=== PATIENT | female | born 1965 | race Caucasian/White ===

== ENCOUNTER 2023-02-09 10:46 | Day surgery (SDC) | payer OTHER ==
[~2023-02-09] VITALS: Ht 177.8 cm; Wt 81.6 kg
[2023-02-09] MEDS ORDERED: diphenhydrAMINE 50 MG/ML VIAL ONE (12:06)
[2023-02-09] MEDS ORDERED: LIDOCAINE 2% 100 MG/5 ML UJET TP ONE (12:06)
[2023-02-09] MEDS ORDERED: fentaNYL citrate 0.05 MG/ML VIAL ONE (12:06)
[2023-02-09] MEDS ORDERED: MIDAZOLAM 2 MG/2 ML VIAL ONE (12:06)
[2023-02-09] MEDS: MIDAZOLAM 2 MG/2 ML VIAL IVP ONE (12:20)
[2023-02-09] MEDS: LIDOCAINE 2% 100 MG/5 ML UJET TP ONE (12:20)
[2023-02-09] MEDS: fentaNYL citrate 0.05 MG/ML VIAL IVP ONE (12:21)
[2023-02-09] MEDS: diphenhydrAMINE 50 MG/ML VIAL IVP ONE (12:22)
== END 2023-02-09 13:50 | disposition home or self-care (01) ==
LOC: MMU 10:46 → MOR 10:46
PROVIDERS: ATTEND Internal Medicine Gastroenterology
DX: Z12.11 Encounter for screening for malignant neoplasm of colon (principal); K29.50 Unspecified chronic gastritis without bleeding; K25.9 Gastric ulcer, unspecified as acute or chronic, without hemorrhage or perforation; K63.5 Polyp of colon; K21.9 Gastro-esophageal reflux disease without esophagitis; K30 Functional dyspepsia; F31.9 Bipolar disorder, unspecified; G43.909 Migraine, unspecified, not intractable, without status migrainosus; Z98.1 Arthrodesis status; Z88.1 Allergy status to other antibiotic agents; Z79.899 Other long term (current) drug therapy
CPT/HCPCS: J1200; J2250; J3010

== ENCOUNTER 2023-03-23 10:30 | Day surgery (SDC) | payer OTHER ==
[~2023-03-23] VITALS: Ht 177.8 cm; Wt 83.9 kg
[2023-03-23] MEDS ORDERED: MIDAZOLAM 2 MG/2 ML VIAL ONE (11:39)
[2023-03-23] MEDS ORDERED: fentaNYL citrate 0.05 MG/ML VIAL ONE (11:39)
[2023-03-23] MEDS ORDERED: MIDAZOLAM 2 MG/2 ML VIAL IVP ONE (12:35)
== END 2023-03-23 13:30 | disposition home or self-care (01) ==
LOC: MDS 10:30 → MMU 10:32 → MDS 13:30
PROVIDERS: ATTEND Internal Medicine Gastroenterology
DX: K21.9 Gastro-esophageal reflux disease without esophagitis (principal); K29.50 Unspecified chronic gastritis without bleeding; K25.9 Gastric ulcer, unspecified as acute or chronic, without hemorrhage or perforation; K30 Functional dyspepsia; K59.00 Constipation, unspecified; G40.909 Epilepsy, unspecified, not intractable, without status epilepticus; Z88.1 Allergy status to other antibiotic agents; Z79.899 Other long term (current) drug therapy
CPT/HCPCS: 36415; 43239; 86677; J2250; J3010